=== PATIENT | female | born 1960 | race African-American/Black ===

== ENCOUNTER 2017-02-12 20:48 | Emergency (ER) | payer OTHER ==
[~2017-02-12] VITALS: Ht 180.3 cm; Wt 83.9 kg
[~2017-02-12 20:48] MED LIST: AMLODIPINE BES2.5 MG ORAL; NORCO 5-325 TA1 EACH ORAL
[2017-02-12 21:00] VITALS: BP 128/89
--- NOTE | 2017-02-12 22:50 | Emergency Room Report ---
History of Present Illness General Chief Complaint: Laceration Source: Patient Present Illness HPI Patient was upset over the loss of one of her family members. She is a bit of vodka earlier. She lost her footing and fell onto her knees. Her left leg was cut. She was walking for quite a bit and was waiting. Stasis been greater than 10 years for her last tetanus shot. Allergies: Coded Allergies: PENICILLINS (Unverified Allergy, Unknown, 02/12/17) Patient History Social History Narrative works in a post office Now: No : 3 Para: 3 Reviewed Nursing Documentation: PMH: Agreed, PSxH: Agreed Nursing Documentation-PMH Hx Hypertension: Yes Physical Exam Vital Signs Date Time Temp Pulse Resp B/P Pulse Ox O2 Delivery O2 Flow Rate FiO2 02/12/17 20:42 98.4 109 16 135/95 98 Room Air Medical Decision Making Diagnostic Impression: Primary Impression: Laceration Additional Impressions: Knee contusion Alcohol abuse Status: improved Disposition: HOME, SELF-CARE Condition: Improved Brad Valle M.D. Feb 12, 2017 22:50
[2017-02-12] MEDS ORDERED: TYLENOL325 MG ORAL (22:54)
[2017-02-12] MEDS ORDERED: BACITRACIN15 GM TOPIC (22:54)
[2017-02-12] MEDS ORDERED: Tetanus/Diptheria/Pertussis Vaccine 0.5ml Syr IM ONE (23:00)
[2017-02-12] MEDS ORDERED: Bacitracin Oint UD TOPIC ONE (23:00)
[2017-02-12 23:17] VITALS: BP 129/90
== END 2017-02-12 23:15 | disposition home or self-care (01) ==
LOC: EDBD 20:48 → EMR 21:05
DX: S81.812A Laceration without foreign body, left lower leg, initial encounter (principal); W19.XXXA Unspecified fall, initial encounter; Y93.9 Activity, unspecified; Y92.9 Unspecified place or not applicable; Z23 Encounter for immunization; I10 Essential (primary) hypertension; Z88.0 Allergy status to penicillin; S80.00XA Contusion of unspecified knee, initial encounter; F10.10 Alcohol abuse, uncomplicated
CPT/HCPCS: 90471; 90715; 96372

== ENCOUNTER 2017-02-21 10:10 | Emergency (ER) | payer OTHER ==
[~2017-02-21] VITALS: Ht 180.3 cm; Wt 81.6 kg
[~2017-02-21 10:10] MED LIST changes: +BACITRACIN15 GM TOPIC; +TYLENOL325 MG ORAL
[2017-02-21 10:42] VITALS: BP 123/85
[2017-02-21 11:25] VITALS: BP 123/85
--- NOTE | 2017-02-21 15:29 | Emergency Room Report ---
History of Present Illness General Chief Complaint: Wound Recheck/Suture Removal Source: Patient Present Illness HPI 56-year-old female presents ED for suture removal. Patient had laceration to her left leg. Was seen here and had sutures placed on 02/12. Patient is here to have sutures removed. Denies any pain. Denies any fevers or chills denies any discharge. No aggravating relieving factors. Denies any other associated symptom Allergies: Coded Allergies: PENICILLINS (Unverified Allergy, Unknown, 02/12/17) Patient History Past Medical History: HTN Past Surgical History: none Pertinent Family History: none Social History: Denies: smoking, alcohol use, drug use Last Menstrual Period: n/a Now: No Immunizations: UTD Reviewed Nursing Documentation: PMH: Agreed, PSxH: Agreed Nursing Documentation-PMH Hx Hypertension: Yes Review of Systems All Other Systems: negative except mentioned in HPI Physical Exam Vital Signs Date Time Temp Pulse Resp B/P (MAP) Pulse Ox O2 Delivery O2 Flow Rate FiO2 02/21/17 10:30 98.4 86 18 123/85 96 Room Air Sp02 EP Interpretation: reviewed, normal General Appearance: no apparent distress, alert, GCS 15, non-toxic Head: normocephalic Eyes: bilateral eye normal inspection, bilateral eye PERRL ENT: normal ENT inspection Neck: normal inspection Respiratory: normal inspection Cardiovascular #1: normal inspection Gastrointestinal: normal inspection Rectal: deferred Genitourinary: no CVA tenderness Musculoskeletal: normal inspection Neurologic: alert, oriented x3, responsive, motor strength/tone normal, sensory intact, speech normal Psychiatric: normal inspection Skin: laceration - wound well approximated with sutures. no induration/erythema Lymphatic: normal inspection Medical Decision Making Diagnostic Impression: Primary Impression: Encounter for removal of sutures ER Course Patient presents to the emergency department today for suture removal. patient' s wound appears well-healed, and sutures are ready to be removed today. Using sterile technique the sutures were removed patient tolerated procedure well without any difficulty. Patient was given device in how to care for the wound patient is advised followup with his private care doctor in 2-3 days and return to emergency room for any worsening conditions as needed Last Vital Signs Date Time Temp Pulse Resp B/P (MAP) Pulse Ox O2 Delivery O2 Flow Rate FiO2 02/21/17 11:25 98.4 86 18 123/85 96 Room Air Status: improved Disposition: HOME, SELF-CARE Condition: Stable Referrals: [facility],REFERRING (PCP) Patient Instructions: Suture Removal, Care After BREANNE RAMIREZ M.D. Feb 21, 2017 15:29
== END 2017-02-21 11:28 | disposition home or self-care (01) ==
LOC: EMR 10:55
DX: S81.812D Laceration without foreign body, left lower leg, subsequent encounter (principal); Z48.02 Encounter for removal of sutures; Z88.0 Allergy status to penicillin; I10 Essential (primary) hypertension; X58.XXXD Exposure to other specified factors, subsequent encounter
CPT/HCPCS: 99281

== ENCOUNTER 2017-06-25 09:24 | Emergency (ER) | payer OTHER ==
[~2017-06-25] VITALS: Ht 180.3 cm; Wt 83.9 kg
[2017-06-25 09:37] VITALS: BP 117/78
[2017-06-25] MEDS ORDERED: AMLODIPINE BESY10 MG ORAL (09:40)
[2017-06-25] MEDS ORDERED: FLONASE SENSIM9.9 ML NS (09:54)
[2017-06-25] MEDS ORDERED: HYDROCORTISONE30 G2 TP (09:54)
[2017-06-25 10:00] VITALS: BP 128/72
--- NOTE | 2017-06-26 16:40 | Emergency Room Report ---
History of Present Illness General Chief Complaint: General Complaint Source: Patient Present Illness HPI 56-year-old female presents ED for evaluation. States she's been experiencing dry nasal passages and dry lips for the last 3 days. States she's tried saline mist and Vaseline without relief. States cracking burning pain. /10. Denies any bleeding. Denies any allergies. No other aggravating relieving factors. Denies any other associated symptoms Allergies: Coded Allergies: PENICILLINS (Unverified Allergy, Unknown, 02/12/17) Patient History Past Medical History: HTN Past Surgical History: none Pertinent Family History: none Social History: Reports: smoking, alcohol use, drug use Now: No Immunizations: UTD Reviewed Nursing Documentation: PMH: Agreed, PSxH: Agreed Nursing Documentation-PMH Hx Hypertension: Yes Review of Systems All Other Systems: negative except mentioned in HPI Physical Exam Vital Signs Date Time Temp Pulse Resp B/P (MAP) Pulse Ox O2 Delivery O2 Flow Rate FiO2 06/25/17 09:37 98.4 99 15 117/78 96 Room Air Sp02 EP Interpretation: reviewed, normal General Appearance: no apparent distress, alert, GCS 15, non-toxic Head: normocephalic Eyes: bilateral eye normal inspection, bilateral eye PERRL ENT: hearing grossly normal, normal pharynx, no angioedema, normal voice, TMs + canals normal Neck: normal inspection Respiratory: chest non-tender, lungs clear, normal breath sounds, speaking full sentences Cardiovascular #1: normal inspection Gastrointestinal: normal inspection Rectal: deferred Genitourinary: no CVA tenderness Musculoskeletal: normal inspection Neurologic: alert, oriented x3, responsive, motor strength/tone normal, sensory intact, speech normal Psychiatric: normal inspection Skin: rash Lymphatic: normal inspection Medical Decision Making Diagnostic Impression: Primary Impression: Disorder of nasal cavity or sinuses ER Course Hospital Course 56-year-old female presents to ED with dry nasal passages and lips. Also notes rash around the nose and lips Differential diagnoses include: Cellulitis, dermatitis, insect bite, abscess Clinical course Patient placed on stretcher. After initial history, physical exam reveals a middle aged female in no acute distress. On exam there is a rash noted around the lips and around the naris. Papular erythematous. I will prescribe Flonase, steroid cream recommend followup with ENT/PMD Diagnosis - disorder of nasal cavity or sinuses stable and discharged to home with prescription for Flonase, hydrocortisone. Instructed to followup with PMD. Instructed return to ED if symptoms recur or worsen Last Vital Signs Date Time Temp Pulse Resp B/P (MAP) Pulse Ox O2 Delivery O2 Flow Rate FiO2 06/25/17 10:00 98.8 76 16 128/72 100 Room Air Status: improved Disposition: HOME, SELF-CARE Condition: Stable Scripts Fluticasone Furoate (FLONASE SENSIMIST) 9.9 Ml [place].susp 2 SPRAY NS BID, #9.9 ML Prov: BREANNE RAMIREZ M.D. 06/25/17 Hydrocortisone (Hydrocortisone Cream 2.5%) Y Cream.appl 1 APPLIC TP BID for 10 Days, GM Prov: BREANNE RAMIREZ M.D. 06/25/17 Referrals: [facility],REFERRING (PCP) Patient Instructions: Sinus Rinse, [id number] BREANNE RAMIREZ M.D. Jun 26, 2017 16:40
== END 2017-06-25 10:00 | disposition home or self-care (01) ==
LOC: EMR 09:55
DX: J34.89 Other specified disorders of nose and nasal sinuses (principal); Z88.0 Allergy status to penicillin; I10 Essential (primary) hypertension
CPT/HCPCS: 99283

== ENCOUNTER 2019-02-03 08:54 | Emergency (ER) | payer OTHER ==
[~2019-02-03] VITALS: Ht 180.3 cm; Wt 99.8 kg
[~2019-02-03 08:54] MED LIST changes: +AMLODIPINE BESY10 MG ORAL; +FLONASE SENSIM9.9 ML NS; +HYDROCORTISONE30 G2 TP
--- NOTE | 2019-02-03 09:03 | Emergency Room Report ---
History of Present Illness General Chief Complaint: right rib pain Source: Patient Present Illness HPI 58-year-old female presents with right rib pain 2 days ago, patient was sitting on the toilet, the toilet came loose and she fell forward hitting her right side , she did not hit her head, no LOC, she states she has a lot of right rib pain, worse with inspiration, alleviated with rest, no nausea no vomiting no heart pain, she grades the severity as severe Allergies: Coded Allergies: PENICILLINS (Unverified Allergy, Unknown, 02/12/17) Patient History Past Medical History: see triage record Reviewed Nursing Documentation: PMH: Agreed; PSxH: Agreed Nursing Documentation-PMH Hx Hypertension: Yes Review of Systems All Other Systems: negative except mentioned in HPI Physical Exam Sp02 EP Interpretation: reviewed, normal General Appearance: well appearing, no apparent distress, alert Head: normocephalic, atraumatic Eyes: bilateral eye PERRL, bilateral eye EOMI ENT: uvula midline, moist mucus membranes Neck: supple, thyroid normal, supple/symm/no masses Respiratory: lungs clear, no respiratory distress, no retraction, no accessory muscle use Cardiovascular #1: normal peripheral pulses, regular rate, rhythm, no edema, no gallop, no murmur, other - Recruiter Manager Lionel Osorio RN, patient with ttp right ribs 7 -8, no creptius felt, deformity, no echymosis Gastrointestinal: non tender, soft, no guarding, no rebound Musculoskeletal: normal inspection Neurologic: alert, oriented x3 Psychiatric: mood/affect normal Skin: no rash, warm/dry Medical Decision Making Diagnostic Impression: Primary Impression: Contusion of rib on right side Qualified Codes: S20.211A - Contusion of right front wall of thorax, initial encounter ER Course 58-year-old female presents with right rib contusion, versus rib fracture, versus pneumo, x-ray shows no acute fracture, patient most likely with a rib contusion, patient counseled, incentive spirometry provided, follow with PCP return precautions discussed, short dose of pain regimen was given Cures report was checked Other X-Ray Diagnostic Results Other X-Ray Diagnostic Results : X-Ray ordered: Right rib complete # of Views/Limited Vs Complete: Complete - 7 views Indication: Pain EP Interpretation: Yes Interpretation: no fractures Impression: Other - no acute fx, right hemidiaphragm noted. Electronically Signed by: Zachariah Cowart MD Disposition: HOME, SELF-CARE Condition: Stable Scripts Hydrocodone Bit/Acetaminophen 5-325* (NORCO 5-325*) 1 Each Tablet 1 TAB ORAL Q6H PRN for For Pain, #10 TAB 0 Refills Prov: Zachariah Cowart MD 02/03/19 Naproxen* (NAPROSYN*) 250 Mg Tablet 250 MG ORAL BID PRN for For Pain, #20 TAB 0 Refills Prov: Zachariah Cowart MD 02/03/19 Referrals: [facility]. [facility] Departure Forms: Return to Work Return to Work Date: Feb 08, 2019 Patient Instructions: Rib Contusion, Rib Fracture, [id number] Additional Instructions: The patient was provided with discharge instructions, notified to follow-up with a primary care doctor and or specialist in the next 24-48 hours, and to return to the ED if they have worsening of their symptoms. Please note that this report is being documented using iMeigu technology. This can lead to erroneous entry secondary to incorrect interpretation by the dictating instrument. Zachariah Cowart MD Feb 03, 2019 09:03
--- NOTE | 2019-02-03 09:05 | NUR ---
ED Nurse Note: PT WALKED IN TO ER TODAY FROM HOME. AOX4. PT C/O RIGHT SIDED RIB PAIN, 10/ X 2 DAYS AGO AFTER ACCIDENTALLY FALLING OFF OF THE TOILET. PT DENIES HEAD TRAUMA OR LOC. NO RESPIRATORY DISTRESS, ACCESSORY MUSCLE USE OR RETRACTIONS NOTED. PT ABLE TO SPEAK IN FULL SENTENCES. NO OBVIOUS DEFORMITIES.
[2019-02-03 09:06] VITALS: BP 122/84
[2019-02-03] MEDS ORDERED: NORCO 5-325 TA1 EACH ORAL (09:11)
[2019-02-03] MEDS ORDERED: NAPROXEN250 MG ORAL (09:11)
--- NOTE | 2019-02-03 09:14 | NUR ---
ED Nurse Note: PT TO XRAY.
[2019-02-03] MEDS ORDERED: Ketorolac 60mg Inj IM ONE (09:15)
[2019-02-03] MEDS ORDERED: Acetaminophen 500mg (ES) tab ORAL ONE (09:15)
--- NOTE | 2019-02-03 09:43 | NUR ---
ED Nurse Note: PT BACK FROM [facility].
--- NOTE | 2019-02-03 09:49 | NUR ---
ED Nurse Note: PT LAYING PEACEFULLY IN BED IN NAD. AOX4. PRESCRIPTIONS AND DISCHARGE PAPERWORK EXPLAINED TO PT. PT VERBALIZES UNDERSTANDING AND ALL QUESTIONS ANSWERED. PRESCRIPTIONS AND DISCHARGE PAPERWORK GIVEN TO PT AND ID WRISTBAND REMOVED. PT WALKED OUT OF ER WITH STEADY GAIT AND ALL BELONGINGS.
[2019-02-03 09:50] VITALS: BP 120/84
[2019-02-04] MEDS ORDERED: NORCO 5-325 TA1 EACH ORAL (10:12)
--- NOTE | 2019-02-05 08:14 | Diagnostic Imaging Report ---
Indication: Reason For Exam: PAIN Technique: Single AP view of the chest and multiple views of the right ribs.. Comparison: None. Findings: The cardiomediastinal silhouette is within normal limits. No airspace consolidation, pneumothorax, or pleural fluid. There is elevation of the right hemidiaphragm with associated volume loss and subsegmental atelectasis. No acute displaced rib fracture is identified. IMPRESSION: 1. No acute cardiopulmonary process. 2. No displaced acute rib fractures.
== END 2019-02-03 09:51 | disposition home or self-care (01) ==
LOC: EMR 09:19
DX: S20.211A Contusion of right front wall of thorax, initial encounter (principal); W22.8XXA Striking against or struck by other objects, initial encounter; Y92.9 Unspecified place or not applicable; Z88.0 Allergy status to penicillin; I10 Essential (primary) hypertension
CPT/HCPCS: 96372; 99283